=== PATIENT | female | born 1965 | race Caucasian/White ===

== ENCOUNTER → 2017-01-10 | Day surgery (SDC) | payer MEDICARE, MEDICAID ==
[~2017-01-10] VITALS: Ht 165.1 cm; Wt 57.7 kg
[~2017-01-10] MED LIST: AMARYL2 MG PO; AMARYL4 MG PO; APRISO0.375 GM PO; COLESTIPOL HCL1 GM PO; CORTAID28 GM TOP; ENTOCORT 3 MG3 MG PO; GLUCOPHAGE1000 MG PO; GLUCOSE1 EACH PO; HYDRODIURIL25 MG PO; IMURAN50 MG PO; KLOR-CON M2020 MEQ PO; LIPITOR10 MG PO; LOPID600 MG PO; MAVIK2 MG PO; PRILOSEC20 MG PO; SARNA SENSITIV222 ML TOP; SPRINTEC 28 DA1 EACH PO; SYNALAR TOP; TRIAMCINOLONE L60 ML TOP; VITAMIN B-1000 MCG/M IM
--- NOTE | ~2017-01-10 | HP ---
PAT[facility] AGE: 51 Y [address] ROOM: [place] [id number] [place] [facility] [place]: [place] History & Physical DISCHARGE DATE: FAMILY PHYSICIAN: Andrei Byrd MD ATTENDING PHYSICIAN: Marilyn Rosas DATE OF SERVICE: This is a 51-year-old, 0, with the last menstrual period at the middle of December. She has a history of developmental disabilities and a history of mild dysplasia. She presents for her annual examination under anesthesia, for pelvic exam, colposcopic exam with biopsies, and breast exam. She had a mammogram done in my office. CURRENT MEDICATIONS: 1. Amaryl. 2. Apriso. 3. Atorvastatin. 4. Azathioprine. 5. B12. 6. Colestipol. 7. Cortaid. 8. Entocort. 9. Hydrochlorothiazide. 10. K-Dur. 11. Lopid. 12. Mavik. 13. Metformin. 14. Prilosec. 15. Sarna. 16. Sprintec. 17. Synalar. ALLERGIES: NONE KNOWN. SURGICAL HISTORY: She has had a laser ablation of the cervix. She has had a colon resection x2 in 1998. She had a colonoscopy on 10/15/2016 in [place]. PHYSICAL EXAMINATION: Will be done under anesthetic. IMPRESSION: 1. History of mild dysplasia. [facility] 51 Y [address] ROOM: [place] [id number] [place] [facility] [place]: 01[place]10/[place] History & Physical DISCHARGE DATE: FAMILY PHYSICIAN: Andrei Byrd MD ATTENDING PHYSICIAN: Marilyn Rosas 2. Developmental disabilities. PLAN: We will proceed with breast exam, pelvic exam, and colposcopic exam under anesthesia. I discussed the risks over the phone with her mother to include bleeding, transfusion, infection, injury to other organs, and need for additional surgery. Appropriate consents are signed and witnessed. MD HENRY COCHRAN/modl /[id number] D: [id number] T: [id number] HISTORY & PHYSICAL
--- NOTE | ~2017-01-10 | OR ---
PATIENT'S NAME: YASMIN [facility] AGE: 51 Y [address] ROOM: [place] [id number] [place] [facility] [place]: 01/10/2017 OR/Procedure Report DISCHARGE DATE: FAMILY PHYSICIAN: Andrei Byrd MD ATTENDING PHYSICIAN: Marilyn Rosas SURGEON: Marilyn Rosas MD PERSONNEL ANALYST: DATE OF PROCEDURE: 01/10/2017 PREOPERATIVE DIAGNOSES: 1. History of cervical dysplasia. 2. Developmental disabilities. POSTOPERATIVE DIAGNOSES: 1. History of cervical dysplasia. 2. Developmental disabilities. PROCEDURE PERFORMED: 1. Pelvic examination under anesthesia. 2. Breast exam under anesthesia. 3. Colposcopic exam with endocervical curettage and cervical biopsies under anesthesia and Pap smear under anesthesia. ANESTHESIA: MAC. BLOOD LOSS: Minimal. COMPLICATIONS: None. DESCRIPTION OF PROCEDURE: The patient was taken to the operating room, placed under MAC anesthetic. Breast exam was performed with no masses, nodularity, skin changes, nipple discharge, or axillary lymphadenopathy noted. The speculum exam revealed normal vagina and cervix. Pap test is collected. Acetic acid is placed on the cervix and an endocervical curettage is performed. The colposcopy is adequate. Biopsies are taken from the 4 quadrants as there are no acetowhite changes on the cervix. Bimanual exam reveals a slightly enlarged uterus with no adnexal masses. The patient tolerated the procedure well. I used silver nitrate on the cervical biopsy sites. I reviewed the findings with the patient's caregiver. MARILYN ROSAS MD [facility] 51 Y [address] ROOM: [place] [address] [place] [facility] [place]: 01/10/2017 OR/Procedure Report DISCHARGE DATE: FAMILY PHYSICIAN: Andrei Byrd MD ATTENDING PHYSICIAN: Marilyn Rosas/cassial /[id number] d: 01/10/17 1225 t: 01/24/17 1801, OPERATIVE SUMMARY
[2017-01-10 06:36] LABS: BASOPHIL # 0.1 K/uL (0.0-0.2); BASOPHIL % 0.7 %; HEMATOCRIT 35.8 % (33.0-46.0); HEMOGLOBIN 11.6 g/dL (10.0-15.0); IMMATURE GRANULOCYTE % 0.4 %; LYMPHOCYTE # 1.4 K/uL (0.8-4.0); LYMPHOCYTE % 19.8 %; MCH 30.9 pg (27.0-34.0); MCHC 32.4 gm/dL (32.0-36.5); MCV 95.2 fl (83.0-98.0); MONOCYTE # 0.6 K/uL (0.0-1.0); MONOCYTE % 9.1 %; MPV 11.9 fl (9.4-12.4); NRBC % 0 /100WBC (0-0.00); PLATELET COUNT 415 K/uL (150-450); RBC 3.76 M/uL (3.50-5.50); RDW-CV 13.1 % (11.9-14.6); WBC 7.1 K/uL (4.0-11.0)
== END | disposition disaster alternative care site (69) ==
LOC: GPOC 01-01 11:00 → GSDC 05:56
PROVIDERS: Obstetrics & Gynecology
PROC: 0UJH8ZZ Inspection of Vagina and Cul-de-sac, Via Natural or Artificial Opening Endoscopic (ICD-10-PCS; principal; 2017-01-10)
DX: Z01.419 Encounter for gynecological examination (general) (routine) without abnormal findings (principal); N85.2 Hypertrophy of uterus; F79 Unspecified intellectual disabilities; I10 Essential (primary) hypertension; K50.90 Crohn's disease, unspecified, without complications; E11.9 Type 2 diabetes mellitus without complications; K21.9 Gastro-esophageal reflux disease without esophagitis; E78.00 Pure hypercholesterolemia, unspecified; Z90.49 Acquired absence of other specified parts of digestive tract; Z87.410 Personal history of cervical dysplasia; Z98.890 Other specified postprocedural states; Z79.899 Other long term (current) drug therapy
CPT/HCPCS: G0145; J2001; J7030